=== PATIENT | male | born 1965 | race Caucasian/White ===

== ENCOUNTER 2017-04-24 11:44 | Day surgery (SDC) | payer OTHER ==
[2017-04-24] MEDS ORDERED: NS 1,000 ML IV (13:00)
[2017-04-24] MEDS ORDERED: PROPOFOL 200 MG/20 ML VIAL As Ordered ×3 (13:04→13:15)
== END 2017-04-24 13:28 | disposition home or self-care (01) ==
LOC: M OPP 11:44
DX: Z12.11 Encounter for screening for malignant neoplasm of colon (principal); D12.5 Benign neoplasm of sigmoid colon; I10 Essential (primary) hypertension; E11.9 Type 2 diabetes mellitus without complications; G47.30 Sleep apnea, unspecified; F32.9 Major depressive disorder, single episode, unspecified; E78.5 Hyperlipidemia, unspecified; Z79.82 Long term (current) use of aspirin; Z79.899 Other long term (current) drug therapy; Z99.89 Dependence on other enabling machines and devices; Z80.0 Family history of malignant neoplasm of digestive organs; Z85.46 Personal history of malignant neoplasm of prostate
CPT/HCPCS: 45385

== ENCOUNTER 2018-04-19 07:33 | Day surgery (SDC) | payer OTHER ==
[~2018-04-19] VITALS: Ht 170.2 cm; Wt 104.5 kg
[~2018-04-19 07:33] MED LIST: ASPI1TAB PO; ATOR1TAB21 PO; FISH500C PO; FISH7.5C PO; GEMF600T5 PO; INVO100T PO; LEXA1TAB PO; LISI10TA2 PO; LR 1,000 ML IV ONE; METF500T13 PO; METF850T4 PO; OMEP20CA3 PO
[2018-04-19] MEDS ORDERED: MIDAZOLAM INJ 2 MG/2 ML VIAL (J2250) As Ordered ONE (08:16)
[2018-04-19] MEDS ORDERED: LIDOCAINE 2% INJ 100 MG/5 ML SDV (FOR ANES.) As Ordered ONE (08:16)
[2018-04-19] MEDS ORDERED: ROCURONIUM BROMIDE 50 MG/5 ML VIAL As Ordered ONE (08:16)
[2018-04-19] MEDS ORDERED: fentaNYL 250 MCG/5 ML INJECTION (J3010) As Ordered ONE (08:16)
[2018-04-19] MEDS ORDERED: PROPOFOL 200 MG/20 ML VIAL As Ordered ONE (08:16)
[2018-04-19] MEDS ORDERED: INVO100T PO (08:52)
[2018-04-19] MEDS ORDERED: BUPIVACAINE/EPIN 0.25% 30 ML VIAL As Ordered ONE ×2 (09:16→09:32)
[2018-04-19] MEDS ORDERED: GLYCOPYRROLATE INJ 0.2 MG/ML 2 ML VIAL As Ordered ONE (09:52)
[2018-04-19] MEDS ORDERED: ONDANSETRON 4MG/2ML VIAL (J2405) As Ordered ONE (09:52)
[2018-04-19] MEDS ORDERED: METOCLOPRAMIDE INJ 10MG/2ML VIAL (J2765) As Ordered ONE (09:52)
[2018-04-19] MEDS ORDERED: KETOROLAC 60 MG/2 ML VIAL (J1885) As Ordered ONE (09:52)
[2018-04-19] MEDS ORDERED: NEOSTIGMINE 10 MG/10 ML VIAL (J2710) As Ordered ONE (09:52)
[2018-04-19] MEDS ORDERED: SUGAMMADEX SODIUM 500 MG/5 ML VIAL (BRIDION) As Ordered ONE (10:02)
[2018-04-19] MEDS ORDERED: fentaNYL 100 MCG/2 ML INJECTION (J3010) As Ordered ONE (10:12)
[2018-04-19] MEDS ORDERED: fentaNYL 100 MCG/2 ML INJECTION (J3010) IV PRN (11:00)
[2018-04-19] MEDS ORDERED: ONDANSETRON 4MG/2ML VIAL (J2405) IV PRN (11:00)
[2018-04-19] MEDS ORDERED: NORCO, ANEXSIA 5/325MG TABLET (HYDROcodone/ACETAMINOPHEN) PO PRN (11:00)
[2018-04-19] MEDS ORDERED: LR 1,000 ML IV SCH (11:00)
[2018-04-19] MEDS ORDERED: METOCLOPRAMIDE INJ 10MG/2ML VIAL (J2765) IV PRN (11:00)
[2018-04-19] MEDS ORDERED: PERCOCET 5MG/325MG TAB PO PRN (11:00)
[2018-04-19] MEDS ORDERED: MEPERIDINE INJ 25 MG/ML VIAL (J2175) IV PRN (11:00)
[2018-04-19] MEDS ORDERED: ePHEDrine SULFATE 25 MG/5 ML(5MG/ML) SYRINGE As Ordered ONE (11:14)
[2018-04-19 12:00] VITALS: BP 134/86
--- NOTE | 2018-04-19 14:16 | RO ---
DATE OF PROCEDURE: 04/19/2018 PREOPERATIVE DIAGNOSIS: Incarcerated umbilical hernia. POSTOPERATIVE DIAGNOSIS: Incarcerated umbilical hernia. PROCEDURE: Laparoscopic incarcerated umbilical hernia. SURGEON: Dr. Prince SF[employer] DEVELOPER: Dr. Burton assisted with dissection of the hernia sac as well as mesh placement. ANESTHESIA: General. ESTIMATED BLOOD LOSS: 5 COMPLICATIONS: None. INDICATIONS FOR PROCEDURE: The patient 53-year-old male who presents with an incarcerated umbilical hernia. Recommendation was to proceed with laparoscopic possible open repair. Risks and benefits of the procedure not limited to but include bleeding, infection, hernia formation, hernia recurrence, damage to surrounding structure need for further surgery. Informed consent was obtained procedure was planned. PROCEDURE: The patient brought back to operating room six after sufficient sedation. The abdomen was sterilely prepped and draped. Next a time was done to confirm proper patient and proper procedure. Following that a 5 mm incision made left lower quadrant. Veress needle was inserted and the abdomen was insufflated to 15 mmHg. Next Veress needle was removed and a 5 mm OptiVu port was used to gain access the abdomen. Once the abdomen was entered there was omentum stuck inside the umbilical hernia. Another 5 mm port was placed in left lower quadrant. The omentum was carefully dissected free and reduced from the hernia sac. Once that was completed the hernia sac was carefully dissected free circumferentially until the fascia was completely freed up and ready for mesh placement. 9 cm Parietex mesh then had 0 Vicryl sutures placed in all four corners it was placed inside the abdomen. The transvaginal sutures were brought through the abdominal wall using Heron-Goetz needle through four separate stab incisions. Once that was completed the mesh was held up to the abdominal wall two rows secure strap tacks were placed around perimeter of the mesh. The transvaginal sutures were tied in place the abdomen desufflated. Skin incisions closed 4-0 Vicryl subcu sutures. The eye was cleaned and dried. Steri-Strips 4x4 and tape were applied thus ending procedure.
== END 2018-04-19 12:00 | disposition home or self-care (01) ==
LOC: M SDC 07:33
PROVIDERS: ATTEND Surgery
DX: K42.0 Umbilical hernia with obstruction, without gangrene (principal); I10 Essential (primary) hypertension; E78.5 Hyperlipidemia, unspecified; E11.9 Type 2 diabetes mellitus without complications; G47.30 Sleep apnea, unspecified; Z79.82 Long term (current) use of aspirin; Z79.899 Other long term (current) drug therapy; Z79.84 Long term (current) use of oral hypoglycemic drugs
CPT/HCPCS: 49653; C1781; J0690; J1885; J2250; J2405; J2765; J3010

== ENCOUNTER → 2018-11-04 | Outpatient (CLI) | payer OTHER ==
[~2018-11-04] MED LIST changes: -ASPI1TAB PO; +ASPI81TA26 PO; +LISI10TA15 PO; -LISI10TA2 PO; -LR 1,000 ML IV ONE; -OMEP20CA3 PO; +OMEP20CA4 PO
[2018-11-04 09:34] LABS: APPEARANCE, URINE CLEAR (CLEAR); BACTERIA, URINE AUTO NEGATIVE (NEGATIVE); BILIRUBIN, URINE AUTO NEGATIVE (NEGATIVE); BLOOD, URINE BLOOD NEGATIVE (NEGATIVE); COLOR, URINE YELLOW (YELLOW); GLUCOSE, URINE (UA) AUTO NEGATIVE (NEGATIVE); KETONE, URINE AUTO NEGATIVE (NEGATIVE); LEUKOCYTE ESTERASE, URINE AUTO NEGATIVE (NEGATIVE); NITRITE, URINE AUTO NEGATIVE (NEGATIVE); PROTEIN, URINE AUTO NEGATIVE (NEGATIVE); RBC, URINE AUTO 0 /HPF (0-3); SPECIFIC GRAVITY URINE AUTO 1.008 (1.002-1.035); SQUAMOUS EPITHELIAL CELL UR AU 0 /HPF (0-6); UROBILINOGEN, URINE AUTO 0.2 mg/dL (0.0-2.0); WBC, URINE AUTO 0 /HPF (0-3)
[2018-11-04 09:40] LABS: BASO # 0.1 10^3/uL (0.0-0.2); BASO % 0.8 % (0.0-1.0); EOS # 0.2 10^3/uL (0.0-0.50); HEMATOCRIT 43.8 % (42.0-52.0); HEMOGLOBIN 14.9 g/dl (13.5-17.5); LYMPH % 26.7 % (24.0-44.0); MEAN CORPUSCULAR HEMOGLOBIN 30.9 pg (27.0-33.0); MEAN CORPUSCULAR VOLUME 90.9 fl (80.0-96.0); MONO # 0.7 10^3/uL (0.0-0.8); MONO % 9.4 % (0.0-5.0); NEUTROPHILS # 4.5 10^3/uL (1.8-7.7); NEUTROPHILS % 60.8 % (36.0-66.0); PLATELET COUNT, AUTOMATED 219 10^3/uL (150-450); RED BLOOD COUNT 4.82 10^6/uL (4.30-6.10); WHITE BLOOD COUNT 7.5 10^3/uL (4.0-10.0)
[2018-11-04 10:15] LABS: ALT/SGPT 34 U/L (12-78); BILIRUBIN,TOTAL 0.3 MG/DL (0.2-1.0); BLOOD UREA NITROGEN 13 MG/DL (7-18); CALCIUM LEVEL 8.8 MG/DL (8.5-10.1); CARBON DIOXIDE LEVEL 29 MEQ/L (21-32); CHLORIDE LEVEL 101 MEQ/L (98-107); CHOLESTEROL LEVEL 121 MG/DL (<200); CHOLESTEROL RISK RATIO 3.903 (<5); CPK CREATINE PHOSPHOKINASE 137 U/L (39-308); CREATININE FOR GFR 0.74 MG/DL (0.70-1.30); GLOMERULAR FILTRATION RATE > 60.0 (>56); GLUCOSE, FASTING 116 MG/DL (70-100); HDL CHOLESTEROL 31 MG/DL (>40); LDL CHOLESTEROL 36 MG/DL (<100); NON-HDL-C 90 MG/DL; POTASSIUM SERUM 3.8 MEQ/L (3.5-5.1); SODIUM LEVEL 137 MEQ/L (136-145); TOTAL PROTEIN 6.8 GM/DL (6.4-8.2); TRIGLYCERIDES LEVEL 268 MG/DL (<150)
[2018-11-04 10:18] LABS: HEMOGLOBIN A1c 7.5 %
[2018-11-04 10:25] LABS: TOTAL 25(OH) VITAMIN D 27.3 NG/ML (30.0-100.0); VITAMIN B12 LEVEL 289 PG/ML (247-911)
== END ==
LOC: M WUC 08:19
PROVIDERS: ATTEND Family Medicine
DX: F41.9 Anxiety disorder, unspecified (principal); I10 Essential (primary) hypertension; E78.5 Hyperlipidemia, unspecified; E11.9 Type 2 diabetes mellitus without complications; E55.9 Vitamin D deficiency, unspecified

== ENCOUNTER → 2019-02-02 | Outpatient (CLI) | payer OTHER ==
[~2019-02-02] MED LIST changes: +OMEP1CAP73 PO; -OMEP20CA4 PO
[2019-02-02 13:15] LABS: ALBUMIN 3.8 GM/DL (3.2-5.2); ALT/SGPT 29 U/L (12-78); BILIRUBIN,TOTAL 0.4 MG/DL (0.2-1.0); BLOOD UREA NITROGEN 21 MG/DL (7-18); CALCIUM LEVEL 8.8 MG/DL (8.5-10.1); CARBON DIOXIDE LEVEL 30 MEQ/L (21-32); CHLORIDE LEVEL 103 MEQ/L (98-107); CHOLESTEROL LEVEL 113 MG/DL (<200); CHOLESTEROL RISK RATIO 3.054 (<5); CPK CREATINE PHOSPHOKINASE 250 U/L (39-308); CREATININE FOR GFR 0.79 MG/DL (0.70-1.30); GLOMERULAR FILTRATION RATE > 60.0 (>56); GLUCOSE, FASTING 108 MG/DL (70-100); HDL CHOLESTEROL 37 MG/DL (>40); LDL CHOLESTEROL 43 MG/DL (<100); NON-HDL-C 76 MG/DL; POTASSIUM SERUM 4.4 MEQ/L (3.5-5.1); SODIUM LEVEL 137 MEQ/L (136-145); TOTAL PROTEIN 6.8 GM/DL (6.4-8.2); TRIGLYCERIDES LEVEL 165 MG/DL (<150)
[2019-02-02 13:36] LABS: HEMOGLOBIN A1c 7.1 %
[2019-02-03 10:38] LABS: TOTAL 25(OH) VITAMIN D 49.8 NG/ML (30.0-100.0); VITAMIN B12 LEVEL 567 PG/ML (247-911)
== END ==
LOC: M WUC 09:28
PROVIDERS: ATTEND Family Medicine
DX: E78.5 Hyperlipidemia, unspecified (principal); F41.9 Anxiety disorder, unspecified; I10 Essential (primary) hypertension; E11.9 Type 2 diabetes mellitus without complications; E55.9 Vitamin D deficiency, unspecified

== ENCOUNTER → 2020-01-23 | Outpatient (CLI) | payer OTHER ==
[2020-01-23 13:22] LABS: BASO # 0.1 10^3/uL (0.0-0.2); BASO % 1.1 % (0.0-1.0); EOS # 0.1 10^3/uL (0.0-0.5); EOS % 1.6 % (0.0-3.0); HEMATOCRIT 49.9 % (42.0-52.0); HEMOGLOBIN 16.8 g/dl (13.5-17.5); LYMPH # 1.9 10^3/uL (1.5-5.0); LYMPH % 34.2 % (24.0-44.0); MEAN CORPUSCULAR HEMOGLOBIN 30.1 pg (27.0-33.0); MEAN CORPUSCULAR HGB CONC 33.7 g/dl (32.0-36.5); MEAN CORPUSCULAR VOLUME 89.4 fl (80.0-96.0); MONO # 0.6 10^3/uL (0.0-0.8); MONO % 11.4 % (0.0-5.0); NEUTROPHILS # 2.9 10^3/uL (1.5-8.5); NEUTROPHILS % 51.5 % (36.0-66.0); PLATELET COUNT, AUTOMATED 181 10^3/uL (150-450); RED BLOOD COUNT 5.58 10^6/uL (4.30-6.10); WHITE BLOOD COUNT 5.6 10^3/uL (4.0-10.0)
[2020-01-23 13:39] LABS: ALBUMIN 3.7 GM/DL (3.2-5.2); ALT/SGPT 52 U/L (12-78); BILIRUBIN,TOTAL 0.5 MG/DL (0.2-1.0); BLOOD UREA NITROGEN 14 MG/DL (7-18); CALCIUM LEVEL 8.7 MG/DL (8.5-10.1); CARBON DIOXIDE LEVEL 31 MEQ/L (21-32); CHLORIDE LEVEL 99 MEQ/L (98-107); CREATININE FOR GFR 0.76 MG/DL (0.70-1.30); GLOMERULAR FILTRATION RATE > 60.0 (>56); GLUCOSE, FASTING 244 MG/DL (70-100); POTASSIUM SERUM 4.5 MEQ/L (3.5-5.1); SODIUM LEVEL 136 MEQ/L (136-145); TOTAL PROTEIN 6.9 GM/DL (6.4-8.2)
== END ==
LOC: M WUC 10:25
PROVIDERS: ATTEND Physician Assistant
DX: R19.7 Diarrhea, unspecified (principal)

== ENCOUNTER → 2020-01-24 | Outpatient (REF) | payer OTHER ==
[~2020-01-24] MED LIST changes: +CIPR-249 PO; +ONDA4TAB6 PO
== END ==
LOC: M LAB REF 07:30
PROVIDERS: ATTEND Physician Assistant
DX: R19.7 Diarrhea, unspecified (principal)

== ENCOUNTER 2020-02-17 23:18 | Emergency (ER) | payer OTHER ==
[~2020-02-17] VITALS: Ht 170.2 cm; Wt 100.9 kg
[~2020-02-17 23:18] MED LIST changes: -CIPR-249 PO; -ONDA4TAB6 PO
[2020-02-17] MEDS ORDERED: LORazepam 2 MG/ML VIAL IV STA (23:43)
--- NOTE | 2020-02-18 00:05 | REPVR ---
PROCEDURE INFORMATION: Exam: XR Chest, 1 View Exam date and time: 02/17/2020 11:37 PM Age: 55 years old Clinical indication: Chest pain TECHNIQUE: Imaging protocol: XR of the chest Views: 1 view. COMPARISON: No relevant prior studies available. FINDINGS: Lungs: Dependent subsegmental pulmonary atelectasis. Pleural space: Unremarkable. No pleural effusion. No pneumothorax. Heart/Mediastinum: Unremarkable. No cardiomegaly. Bones/joints: Unremarkable. IMPRESSION: No acute findings. Electronically signed by: Ben Beck On 02/18/2020 00:05:25 AM
[2020-02-18] MEDS ORDERED: CIPR-249 PO (00:13)
[2020-02-18] MEDS ORDERED: ONDA4TAB6 PO (00:13)
[2020-02-18 00:19] LABS: BASO # 0.1 10^3/uL (0.0-0.2); BASO % 0.9 % (0.0-1.0); EOS # 0.2 10^3/uL (0.0-0.5); EOS % 1.9 % (0.0-3.0); HEMATOCRIT 47.7 % (42.0-52.0); LYMPH # 3.6 10^3/uL (1.5-5.0); LYMPH % 38.8 % (24.0-44.0); MEAN CORPUSCULAR HEMOGLOBIN 29.5 pg (27.0-33.0); MEAN CORPUSCULAR HGB CONC 33.5 g/dl (32.0-36.5); MONO # 0.9 10^3/uL (0.0-0.8); MONO % 10.2 % (0.0-5.0); NEUTROPHILS # 4.4 10^3/uL (1.5-8.5); NEUTROPHILS % 47.9 % (36.0-66.0); PLATELET COUNT, AUTOMATED 223 10^3/uL (150-450); RED BLOOD COUNT 5.42 10^6/uL (4.30-6.10); WHITE BLOOD COUNT 9.2 10^3/uL (4.0-10.0)
[2020-02-18 00:22] LABS: BLOOD UREA NITROGEN 16 MG/DL (7-18); CARBON DIOXIDE LEVEL 24 MEQ/L (21-32); CHLORIDE LEVEL 98 MEQ/L (98-107); CPK CREATINE PHOSPHOKINASE 145 U/L (39-308); CREATININE FOR GFR 0.88 MG/DL (0.70-1.30); GLOMERULAR FILTRATION RATE > 60.0 (>56); GLUCOSE, FASTING 293 MG/DL (70-100); MB/CK RELATIVE INDEX 1.38 (< OR =4); NT-PRO BNP 6 PG/ML (<125); POTASSIUM SERUM 3.4 MEQ/L (3.5-5.1); SODIUM LEVEL 134 MEQ/L (136-145); TROPONIN I < 0.02 NG/ML (< 0.10)
[2020-02-18] MEDS ORDERED: NS 1,000 ML IV ONE (01:00)
[2020-02-18 03:01] VITALS: BP 141/93
--- NOTE | 2020-02-20 08:58 | ECGEPIP ---
[facility] - ED Test Date: 2020-02-17 Pat Name: DESTINY ARECHIGA Department: Room: - Gender: Male [employer]: SANKET : 1965 Requested By: ELVA Gan Order Number: [id number] Reading MD: Ca Barahona Measurements Intervals [place] Rate: 125 P: 56 [place]: 150 QRS: -11 QRSD: 105 T: 64 QT: 347 QTc: 500 Interpretive Statements SINUS TACHYCARDIA WITH OCCASIONAL SUPRAVENTRICULAR PREMATURE COMPLEXES ABNORMAL RHYTHM ECG NSTTW abnormalities DELAYED R PROGRESSION NO PRIOR Electronically Signed on 02-20-2020 8:58:35 EST by Ca Barahona
== END 2020-02-18 03:03 | disposition home or self-care (01) ==
LOC: M ED 23:18
DX: F41.0 Panic disorder [episodic paroxysmal anxiety] (principal); R00.0 Tachycardia, unspecified; I10 Essential (primary) hypertension; E78.5 Hyperlipidemia, unspecified; F41.1 Generalized anxiety disorder; E11.9 Type 2 diabetes mellitus without complications; Z79.899 Other long term (current) drug therapy
CPT/HCPCS: 71045; 80048; 82550; 82553; 83880; 84484; 85025; 85379; 93005; 93041; 94760; 96361; 96374; 99285; G0480; J2060